=== PATIENT | female | born 1975 | race Caucasian/White ===

== ENCOUNTER 2018-12-20 05:48 | Day surgery (SDC) | payer OTHER, BC ==
[2018-12-20] MEDS ORDERED: MIDAZOLAM 1 MG/ML 2 ML INJ ×2 (08:04)
[2018-12-20] MEDS ORDERED: FENTAnyl 50 MCG/ML VIAL (08:04)
== END 2018-12-20 12:20 | disposition home or self-care (01) ==
LOC: GIL 05:48
DX: K29.50 Unspecified chronic gastritis without bleeding (principal); K21.9 Gastro-esophageal reflux disease without esophagitis
CPT/HCPCS: 43239; 84703; 88305; 88312